=== PATIENT | female | born 1980 | race Hispanic/Latino ===

== ENCOUNTER 2021-03-16 22:25 | Emergency (ER) | payer OTHER, SELFPAY ==
--- OUTSIDE RECORDS SUMMARY | 2021-03-16 22:27 | XMS REPORT | Continuity of Care Document ---
:1980 Author Organization [facility] t Address [address] [place] [address] Care Team Providers Name Role Phone Srinath Attending Clinician Lance SALAS E Attending Clinician Aaron WHITING Attending Clinician Nelia WHITING Attending Clinician Destini ROMERO R Attending Clinician Nicolasa SALAS Attending Clinician Unavailable Lab, Fam Pob I Attending Clinician Unavailable Malcolm BISWAS R Attending Clinician Nelia WHITING Admitting Clinician Problems This patient has no known problems. Allergies, Adverse Reactions, Alerts This patient has no known allergies or adverse reactions. Medications This patient has no known medications. Procedures This patient has no known procedures. Encounters Start End Encounter Admission Attending Care Care Encounter Source Date/Time Date/Time Type Type Clinicians Facility Department ID 2021-03-15 2021-03-15 Transition Solomon Yo [id number] 00:00:00 00:00:00 of Care Melonie Payton [id number] Joanna [id number] 2021-03-15 2021-03-15 Patient Ashtyn Lucas [id number] 00:00:00 00:00:00 Outreach Lei Payton [id number] [place] [id number] 2021-03-12 2021-03-13 [facility] Billy Walker [facility] [id number] 03:39:00 10:31:00 Encounter Dillan Pickens [id number] [place] [id number] [place] [id number] 2021-03-10 2021-03-10 Emergency [facility] [id number] 11:26:00 14:44:00 Joan Thorne [id number] [place] [id number] [place] [id number] 2020-11-10 2020-11-10 Telephone GENTRY Baldwin [id number] 00:00:00 00:00:00 Sydnee CHAO [id number] [facility] [id number] 2020-11-06 2020-11-06 Laboratory Lab, [facility] [id number] 18:05:59 18:25:59 Only Fam P[facility] [id number] [place] [id number] [place] [id number] nal [address] 2020-10-01 2020-10-01 [facility] [id number] 00:00:00 00:00:00 Oleksandr Smith [employer] [id number] [facility] [id number] MATERNAL [id number] & CHILD [address] [place] [address] Results This patient has no known results.
[2021-03-16 23:05] LABS: Urine Blood Negative (Negative); Urine Glucose Negative (Negative); Urine Protein Negative (Negative); Urine Specific Gravity 1.015 (1.005-1.030)
[2021-03-16 23:22] LABS: Urine Specific Gravity/Preg 1.015 (1.005-1.030)
[2021-03-16 23:29] LABS: Absolute Lymphocytes (CBC) 2.9 K/uL (0.7-4.9); Basophils % 0.4 % (0-1.3); Hematocrit 35.3 % (36.0-45.0); Lymphocytes % 40.5 % (15.3-44.8); MPV 9.3 fL (7.6-11.3); RBC Red Blood Cell Count 3.66 M/uL (3.86-4.86)
[2021-03-16] MEDS ORDERED: ONDANSETRON 4 MG/2 ML VIAL ONE (23:36)
[2021-03-16] MEDS ORDERED: FAMOTIDINE 20 MG/2 ML VIAL IV ONE (23:36)
[2021-03-16] MEDS ORDERED: NA CHLORIDE 0.9% 1,000 ML ONE (23:36)
[2021-03-16] MEDS ORDERED: MEPERIDINE HCL 25 MG/ML SYR ONE (23:36)
[2021-03-16 23:37] LABS: Urine Bacteria <20 /HPF (<20); Urine RBC <5 /HPF (NONE SEEN)
[2021-03-16 23:50] LABS: ALT/SGPT 65 U/L (12-78); AST/SGOT 25 U/L (15-37); Albumin 3.5 g/dL (3.4-5.0); Alkaline Phosphatase 136 U/L (45-117); BUN Blood Urea Nitrogen 11 mg/dL (7-18); Bicarbonate 22 mmol/L (21-32); Bilirubin Direct < 0.1 mg/dL (0-0.2); Bilirubin Total 0.2 mg/dL (0.2-1.0); Glucose Level 91 mg/dL (74-106); Lipase 56 U/L (73-393); Protein, Total 7.3 g/dL (6.4-8.2); Sodium Level 136 mmol/L (136-145)
[2021-03-16 23:51] LABS: Potassium 2.9 mmol/L (3.5-5.1)
[2021-03-17] MEDS ORDERED: KETOROLAC 30 MG/ML INJ ONE (00:37)
[2021-03-17] MEDS ORDERED: POTASSIUM 25 MEQ EFFERV TAB ONE ×2 (00:44→01:27)
[2021-03-17] MEDS ORDERED: MEPERIDINE HCL 25 MG/ML SYR ONE (00:53)
--- NOTE | 2021-03-17 01:17 | EDPHYS ---
Physician Documentation [facility] Name: Zara Scanlon Age: 40 yrs Sex: Female : 1980 Arrival Date: 03/16/2021 Time: 22:29 Bed 15 Private MD: ED Physician Franci Alonzo HPI: 03/16 23:10 This 40 yrs old Female presents to ER via Ambulatory with complaints of cp Abdominal Pain. 23:10 The patient presents with abdominal pain. cp 23:10 The patient complains of pain in the mid back area. The symptoms do not radiate. cp Associated signs and symptoms: Pertinent positives: dysuria, nausea, vomiting, Pertinent negatives: diarrhea, fever, pain radiating to the lower extremities. 23:10 Patient reports multiple recent visits and hospitalizations at [facility] for cp kidney infection. Reports she is currently taking prescribed cefdinir antibiotic, hydrocodone for pain and Phenergan for nausea/vomiting. Historical: - Allergies: 22:54 Iodine; iw 22:54 Sulfa (Sulfonamide Antibiotics); iw 03/17 00:28 Levaquin; rr5 - Home Meds: 03/16 22:54 cefdinir 300 mg oral cap 2 caps once daily [Active]; iw - PMHx: 22:54 Anemia; iw - PSHx: 22:54 Cholecystectomy; iw - Immunization history:: Adult Immunizations up to date. - Social history:: Smoking status: Patient reports the use of cigarette tobacco products, smokes one-half pack cigarettes per day. ROS: 23:15 Constitutional: Positive for poor PO intake, Negative for fever. cp 23:15 Eyes: Negative for injury, pain, redness, and discharge. cp 23:15 Cardiovascular: Negative for chest pain, palpitations. 23:15 Respiratory: Negative for cough, shortness of breath, wheezing. 23:15 Abdomen/GI: Positive for abdominal pain, nausea and vomiting, anorexia, Negative for diarrhea, constipation, hematemesis. 23:15 Back: Positive for flank pain, bilaterally. cp 23:15 : Positive for urinary symptoms, Negative for vaginal bleeding. 23:15 Neuro: Negative for altered mental status, headache, weakness. 23:15 All other systems are negative. Exam: 23:20 Constitutional: The patient appears in no acute distress, alert, awake, cp non-diaphoretic, non-toxic, well developed, well nourished. 23:20 Head/Face: Normocephalic, atraumatic. cp 23:20 Eyes: Periorbital structures: appear normal, Conjunctiva: normal, no exudate, no cp injection, Sclera: no appreciated abnormality, Lids and lashes: appear normal, bilaterally. 23:20 ENT: External ear(s): are unremarkable, Nose: is normal, Mouth: Lips: moist, Oral mucosa: moist, Posterior pharynx: Airway: no evidence of obstruction, patent. 23:20 Chest/axilla: Inspection: normal, Palpation: is normal, no crepitus, no tenderness. 23:20 Cardiovascular: Rate: normal, Rhythm: regular. 23:20 Respiratory: the patient does not display signs of respiratory distress, Respirations: cp normal, no use of accessory muscles, no retractions, labored breathing, is not present, Breath sounds: are clear throughout, no decreased breath sounds, no stridor, no wheezing. 23:20 Abdomen/GI: Inspection: abdomen appears normal, Bowel sounds: active, all quadrants, Palpation: soft, in all quadrants, severe abdominal tenderness, in the right upper quadrant and left upper quadrant, rebound tenderness, is not appreciated, voluntary guarding, is elicited in the right upper quadrant and left upper quadrant. 23:20 Back: CVA tenderness, that is severe, is noted bilaterally. 23:20 Skin: no rash present. 23:20 Neuro: Orientation: to person, place \T\ time. Mentation: is normal, Motor: moves all fours, strength is normal. Vital Signs: 22:52 BP 115 / 67; Pulse 84; Resp 16; Temp 98.5; Pulse Ox 99% ; Weight 53.52 kg; Height 5 ft. rr5 5 in. (165.10 cm); Pain 10/10; 23:50 BP 118 / 75; Pulse 80; Resp 19; Pulse Ox 98% ; Pain 8/10; rr5 03/17 01:05 BP 103 / 62; Pulse 79; Resp 18; Pulse Ox 100% on R/A; rr5 03/16 22:52 Body Mass Index 19.64 (53.52 kg, 165.10 cm) rr5 MDM: 03/16 22:43 Patient medically screened. cp 23:45 Differential diagnosis: nephrolithiasis, pyelonephritis, UTI, pancreatitis, sepsis cp bowel obstruction, pancreatitis, Peptic Ulcer Disease, Perf. Duodenal Ulcer, Perf. Gastric Ulcer, Ureterolithiasis. 03/17 01:15 Data reviewed: vital signs, nurses notes, lab test result(s), radiologic studies, CT cp scan. 01:15 Counseling: I had a detailed discussion with the patient and/or guardian regarding: the cp historical points, exam findings, and any diagnostic results supporting the discharge/admit diagnosis, lab results, radiology results, to return to the emergency department if symptoms worsen or persist or if there are any questions or concerns that arise at home. Response to treatment: the patient's symptoms have markedly improved after treatment, patient is well hydrated. VSS. Pain markedly improved. Discussed results of labs and radiology studies. Will discharge to home for continued monitoring. 03/16 23:05 Order name: Urine Dipstick-Ancillary; Complete Time: 23:12 [facility] 03/17 00:32 Interpretation: Normal except: UKET Trace. 03/16 23:05 Order name: Basic Metabolic Panel; Complete Time: 00:00 03/17 00:00 Interpretation: Normal except: K 2.9. 03/16 23:05 Order name: CBC with Diff; Complete Time: 00:00 03/17 00:00 Interpretation: Normal except: RBC 3.66; HGB 11.6; HCT 35.3. 03/16 23:05 Order name: Hepatic Function; Complete Time: 00:00 03/17 00:32 Interpretation: Normal except: ALK 136; GLOB 3.8; A/G 0.9. 03/16 23:05 Order name: Lipase; Complete Time: 00:00 03/17 00:32 Interpretation: Abnormal: LIP 56. 03/16 23:05 Order name: Urine --Ancillary (enter results); Complete Time: 00:00 2 03/16 23:05 Order name: Urine Microscopic Only; Complete Time: 00:00 03/17 00:33 Interpretation: Reviewed. 03/16 23:42 Order name: CT Stone Protocol 03/16 23:43 Order name: Lactate; Complete Time: 00:47 03/17 00:47 Interpretation: LAC 1.4; Reviewed. 03/17 00:17 Order name: Procalcitonin [facility] 03/16 23:05 Order name: IV Saline Lock; Complete Time: 23:06 iw 03/16 23:05 Order name: Labs collected and sent; Complete Time: 23: iw Administered Medications: 03/16 23:19 Drug: Pepcid (famotidine) 20 mg Route: IVP; Site: left hand; rr5 23:52 Follow up: Response: No adverse reaction rr5 23:20 Drug: Zofran (Ondansetron) 4 mg Route: IVP; Site: left hand; rr5 23:52 Follow up: Response: No adverse reaction rr5 23:23 Drug: NS 0.9% 1000 ml Route: IV; Rate: 1 bolus; Site: left hand; rr5 23:23 Drug: Demerol (meperidine) 12.5 mg {Note: rass 0.} Route: IVP; Site: left hand; rr5 23:51 Follow up: Response: No adverse reaction; Pain is decreased; RASS: Alert and Calm (0); rr5 06/01 03/17 01:00 Follow up: Response: No adverse reaction ea 03/16 23:51 Drug: Demerol (meperidine) 12.5 mg {Note: rass 0.} Route: IVP; Site: left hand; rr5 03/17 00:19 Drug: TORadol - (ketorolac) 15 mg Route: IVP; Site: right antecubital; rr5 01:00 Follow up: Response: No adverse reaction ea 00:27 Drug: Potassium Effervescent Tablet 50 mEq Route: PO; rr5 01:00 Follow up: Response: No adverse reaction ea 00:40 Drug: Demerol (meperidine) 25 mg Route: IVP; Site: left wrist; rr5 01:00 Follow up: Response: No adverse reaction ea 00:40 Drug: NS 0.9% 1000 ml Route: IV; Rate: 1 bolus; Site: left antecubital; rr5 01:09 Drug: Potassium Effervescent Tablet 50 mEq Route: PO; rr5 01:51 Follow up: Response: No adverse reaction ea Disposition: 03/17/21 01:16 Discharged to Home. Impression: Nausea and vomiting, Hypokalemia. - Condition is Stable. - Discharge Instructions: Dehydration, Adult, Nausea and Vomiting, Adult, Hypokalemia. - Prescriptions for Zofran 4 mg Oral Tablet - take 1 tablet by ORAL route every 12 hours As needed; 20 tablet. - Medication Reconciliation Form, Thank You Letter, Antibiotic Education, Prescription Opioid Use form. - Follow up: Private Physician; When: 1 - 2 days; Reason: Recheck today's complaints. - Problem is new. - Symptoms have improved. Signatures: Dispatcher [employer] EDMS Cheyenne Loja RN RN Ramos Aquino PA PA cp Janis Carrington RN RN ea Roque, Raymond RN RN rr5 Corrections: (The following items were deleted from the chart) 01:16 01:16 03/17/2021 01:16 Discharged to Home. Impression: Nausea and vomiting. Condition cp is Stable. Forms are Medication Reconciliation Form, Thank You Letter, Antibiotic Education, Prescription Opioid Use. Follow up: Private Physician; When: 1 - 2 days; Reason: Recheck today's complaints. Problem is new. Symptoms have improved. cp 01:50 01:16 03/17/2021 01:16 Discharged to Home. Impression: Nausea and vomiting; ea Hypokalemia. Condition is Stable. Discharge Instructions: Dehydration, Adult, Nausea and Vomiting, Adult, Hypokalemia. Prescriptions for Zofran 4 mg Oral Tablet - take 1 tablet by ORAL route every 12 hours As needed; 20 tablet. and Forms are Medication Reconciliation Form, Thank You Letter, Antibiotic Education, Prescription Opioid Use. Follow up: Private Physician; When: 1 - 2 days; Reason: Recheck today's complaints. Problem is new. Symptoms have improved. cp 14:29 03/16 23:10 The patient presents with abdominal pain in the lower abdomen, cp cp
--- NOTE | 2021-03-17 01:17 | ER ---
Nurse's Notes [facility] [place] Name: Zara Scanlon Age: 40 yrs Sex: Female : 1980 Arrival Date: 03/16/2021 Time: 22:29 Bed 15 Private MD: Diagnosis: Nausea and vomiting;Hypokalemia Presentation: 03/16 22:52 Chief complaint: Patient states: I have been dealing with a kidney infection over the iw last week, I have been to there ER three times and admitted overnight twice, I was last released two days ago on cefdenir but I am still in a lot of pain and having nausea. Coronavirus screen: Client denies travel out of the [place] in the last 14 days. Ebola Screen: No symptoms or risks identified at this time. Initial Sepsis Screen: Does the patient meet any 2 criteria? HR > 90 bpm. Does the patient have a suspected source of infection? Yes: Dysuria/Frequency/Urgency/UTI. Risk Assessment: Do you want to hurt yourself or someone else? Patient reports no desire to harm self or others. Onset of symptoms is unknown. 22:52 Method Of Arrival: Ambulatory iw 22:52 Acuity: EDGARDO 3 iw Historical: - Allergies: 22:54 Iodine; iw 22:54 Sulfa (Sulfonamide Antibiotics); iw 03/17 00:28 Levaquin; rr5 - Home Meds: 03/16 22:54 cefdinir 300 mg oral cap 2 caps once daily [Active]; iw - PMHx: 22:54 Anemia; iw - PSHx: 22:54 Cholecystectomy; iw - Immunization history:: Adult Immunizations up to date. - Social history:: Smoking status: Patient reports the use of cigarette tobacco products, smokes one-half pack cigarettes per day. Screenin:51 Abuse screen: Denies threats or abuse. Denies injuries from another. Nutritional rr5 screening: No deficits noted. Tuberculosis screening: No symptoms or risk factors identified. Fall Risk IV access (20 points). Total Marsh Fall Scale indicates No Risk (0-24 pts). Assessment: 22:52 General: Appears in no apparent distress. uncomfortable, ill, Behavior is cooperative, rr5 appropriate for age. Pain: Complains of pain in back Pain radiates to abdomen Pain currently is 10 out of 10 on a pain scale. Quality of pain is described as aching, Pain began gradually, Is intermittent. Neuro: Level of Consciousness is awake, alert, obeys commands, Oriented to person, place, time. Cardiovascular: Capillary refill < 3 seconds Patient's skin is warm and dry. Respiratory: Airway is patent Respiratory effort is even, unlabored, Respiratory pattern is regular, symmetrical. GI: Abdomen is flat, Abdomen is tender to palpation Reports lower abdominal pain, upper abdominal pain, nausea. : Reports diagnosed with pyelonephritis. EENT: No signs and/or symptoms were reported regarding the EENT system. Derm: Skin is intact, is healthy with good turgor, Skin temperature is warm. Musculoskeletal: Capillary refill < 3 seconds. 23:50 Reassessment: Patient appears in no apparent distress at this time. Patient is alert, rr5 oriented x 3, equal unlabored respirations, skin warm/dry/pink. pain medication given and signed Patient states symptoms have not improved. Pain: Pain currently is 8 out of 10 on a pain scale. 03/17 01:49 Reassessment: Patient and/or family updated on plan of care and expected duration. Pain ea level reassessed. Patient is alert, oriented x 3, equal unlabored respirations, skin warm/dry/pink. Discharge instruction given to patient verbalized the understanding of instruction. Pt left ED ambulatory accompanied by family, pt tolerating well. Vital Signs: 03/16 22:52 BP 115 / 67; Pulse 84; Resp 16; Temp 98.5; Pulse Ox 99% ; Weight 53.52 kg; Height 5 ft. rr5 5 in. (165.10 cm); Pain 10/10; 23:50 BP 118 / 75; Pulse 80; Resp 19; Pulse Ox 98% ; Pain 8/10; rr5 03/17 01:05 BP 103 / 62; Pulse 79; Resp 18; Pulse Ox 100% on R/A; rr5 03/16 22:52 Body Mass Index 19.64 (53.52 kg, 165.10 cm) rr5 ED Course: 03/16 22:29 Patient arrived in ED. ag3 22:40 Ramos Pendleton PA is PHCP. cp 22:40 Franci Alonzo MD is Attending Physician. cp 22:51 Arsen Petty RN is Primary Nurse. rr5 22:51 Inserted saline lock: 20 gauge in left hand, using aseptic technique. Blood collected. rr5 22:52 Patient has correct armband on for positive identification. Placed in gown. Bed in low rr5 position. Call light in reach. Pulse ox on. NIBP on. 22:53 Triage completed. iw 03/17 00:17 CT Stone Protocol In Process Unspecified. EDMS 01:48 No provider procedures requiring assistance completed. IV discontinued, intact, ea bleeding controlled, No redness/swelling at site. Pressure dressing applied. Administered Medications: 03/16 23:19 Drug: Pepcid (famotidine) 20 mg Route: IVP; Site: left hand; rr5 23:52 Follow up: Response: No adverse reaction rr5 23:20 Drug: Zofran (Ondansetron) 4 mg Route: IVP; Site: left hand; rr5 23:52 Follow up: Response: No adverse reaction rr5 23:23 Drug: NS 0.9% 1000 ml Route: IV; Rate: 1 bolus; Site: left hand; rr5 23:23 Drug: Demerol (meperidine) 12.5 mg {Note: rass 0.} Route: IVP; Site: left hand; rr5 23:51 Follow up: Response: No adverse reaction; Pain is decreased; RASS: Alert and Calm (0); rr5 06/01 03/17 01:00 Follow up: Response: No adverse reaction ea 03/16 23:51 Drug: Demerol (meperidine) 12.5 mg {Note: rass 0.} Route: IVP; Site: left hand; rr5 03/17 00:19 Drug: TORadol - (ketorolac) 15 mg Route: IVP; Site: right antecubital; rr5 01:00 Follow up: Response: No adverse reaction ea 00:27 Drug: Potassium Effervescent Tablet 50 mEq Route: PO; rr5 01:00 Follow up: Response: No adverse reaction ea 00:40 Drug: Demerol (meperidine) 25 mg Route: IVP; Site: left wrist; rr5 01:00 Follow up: Response: No adverse reaction ea 00:40 Drug: NS 0.9% 1000 ml Route: IV; Rate: 1 bolus; Site: left antecubital; rr5 01:09 Drug: Potassium Effervescent Tablet 50 mEq Route: PO; rr5 01:51 Follow up: Response: No adverse reaction ea Intake: Outcome: 01:16 Discharge ordered by MD. osmar 01:48 Discharged to home ambulatory, with family. seth 01:48 Condition: stable 01:48 Discharge instructions given to patient, family, Instructed on discharge instructions, follow up and referral plans. Demonstrated understanding of instructions, follow-up care, medications. 01:50 Patient left the ED. ea Signatures: Dispatcher [employer] EDCheyenne Dumont RN RN Ramos Aquino, TIFFANIE PA Janis Acosta RN RN ea Gomez, Alice ag3 Arsen Petty RN RN rr5
[2021-03-17 02:22] VITALS: TEMP 98.5
[2021-03-17 02:25] VITALS: BP 103/62; O2SAT 100
--- NOTE | 2021-03-17 11:22 | RAD REPORT ---
EXAM DESCRIPTION: Stone Protocol 03/17/2021 12:29 AM CDT CLINICAL HISTORY: 40 years, Female, FLANK PAIN COMPARISON: None. TECHNIQUE: Multiple transaxial tomograms of the abdomen and pelvis were performed from the lung base s to the symphysis pubis 3 mm slice thickness at 3 mm interval reconstruction, without administration of IV and oral contrast. Multiplanar reformats in the sagittal and coronal plane were generated and reviewed. This exam was performed according to our departmental dose-optimization protocol, which includes auto mated exposure control, adjustment of the mA and/or kV according to patient size and/or use of iterat viri reconstruction technique. FINDINGS: The lack of IV and oral contrast limits evaluation of solid organs, subtle lesions cannot be excluded. The lung bases demonstrate to be clear. Grossly the unopacified liver, pancreas and adrenal glands demonstrate to be within normal limits, no significant focal lesions were identified. Surgical clips within the gallbladder fossa correspondi ng to previous cholecystectomy. There is prominence of the common bile duct measuring 15 mm on image 32. No significant filling defect identified. The spleen demonstrate punctate areas of consolidations corresponding to granulomas. The kidneys demonstrate grossly unremarkable. There is no evidence for nephrolithiasis and/or hydro nephrosis. No focal masses were demonstrated. The ureters displays normal appearance with normal caliber, no hydroureter was seen. Grossly the unopacified stomach, small bowel and large bowel demonstrate to be within normal limits. There is no evidence for bowel dilatation/or free air the appendix was not visualized. The urinary bladder demonstrate to be within normal limits. The uterus demonstrate the presence of a T-shaped within the endometrial cavity corresponding to a intrauterine device. The aorta demonstrate to be within normal limits. There is no retroperitoneal lymphadenopathy. There is no evidence for ascites. The rest of the soft tissue demonstrate to be grossly unremarkable. IMPRESSION: No evidence of nephrolithiasis and/or hydronephrosis. Status post cholecystectomy with prominence of the common bile duct. No significant filling defect id entified. If there is clinical concern for biliary obstruction, MRCP could be obtained for further ev aluation. Intrauterine device in place. Electronically signed by: Rojas Solano MD 03/17/2021 12:33 AM CDT Due to temporary technical issues with the PACS/Fluency reporting system, reports are being signed by the in house radiologist without review as a courtesy to ensure prompt reporting. The interpreting r adiologist is fully responsible for the content of the report.
== END 2021-03-17 01:50 | disposition home or self-care (01) ==
LOC: ER 22:25
DX: R10.9 Unspecified abdominal pain (principal); R11.2 Nausea with vomiting, unspecified; E87.6 Hypokalemia; F17.210 Nicotine dependence, cigarettes, uncomplicated
CPT/HCPCS: 36415; 74176; 76377; 80048; 80076; 81003; 81015; 81025; 83605; 83690; 84145; 85025; 99284; J2175; J2405; J7030